=== PATIENT | female | born 1995 | race Caucasian/White ===

== ENCOUNTER 2018-01-03 16:46 | Emergency (ER) | payer MEDICAID ==
[~2018-01-03] VITALS: Ht 162.6 cm; Wt 70.3 kg
[2018-01-03 17:03] VITALS: BP 112/75; Ht 162.6 cm; Wt 70.3 kg
== END 2018-01-03 18:00 | disposition home or self-care (01) ==
LOC: ED 16:46
DX: H57.8 Other specified disorders of eye and adnexa (principal); J45.909 Unspecified asthma, uncomplicated